=== PATIENT | female | born 1995 | race Caucasian/White ===

== ENCOUNTER → 2020-09-16 | Outpatient (CLI) | payer MEDICAID, OTHER | LOC: LABNPT 11:21 | PROVIDERS: ATTEND Obstetrics & Gynecology | DX: O13.9 Gestational [pregnancy-induced] hypertension without significant proteinuria, unspecified trimester (principal); Z3A.00 Weeks of gestation of pregnancy not specified | CPT/HCPCS: 82570; 84156 ==

== ENCOUNTER 2020-10-23 13:31 | Inpatient (IN) | payer MEDICAID ==
[~2020-10-23] VITALS: Ht 167.7 cm; Wt 111.2 kg
[2020-10-23] VITALS (42 sets, daily range): BP systolic 118–170; BP diastolic 57–98
--- NOTE | 2020-10-23 13:37 | NUR ---
JENNIFER WALDROP presented to unit via wheelchair from ED, accompanied by ED staff, with c/o CONTRACTIONS. JENNIFER WALDROP weighed, gowned, voided, and to bed. EFHM and TOCO applied, VS taken. JENNIFER WALDROP oriented to bed controls, call light, TV, heat, and A/C controls.
[2020-10-23] MEDS ORDERED: PREN-102 PO (14:07)
[2020-10-23] MEDS ORDERED: D5 LR IV SOLUTION 1,000 ML IV SCH (14:15)
[2020-10-23] MEDS ORDERED: MINERAL OIL CONCENTRATE 99.9% 15 ML UDC TOP PRN (14:15)
[2020-10-23 14:35] LABS: BASOPHILS % (AUTO) 0 % (0-10); EOSINOPHILS # (AUTO) 0.1 10^3/uL (0.0-0.3); EOSINOPHILS % (AUTO) 1 % (0-10); HEMATOCRIT 34 % (35-52); HEMOGLOBIN 11.3 g/dL (11.5-16.0); LYMPHOCYTES # (AUTO) 2.5 10^3/uL (1.0-4.0); LYMPHOCYTES % (AUTO) 22 % (12-44); MEAN CORPUSCULAR HEMOGLOBIN 29 pg (25-34); MEAN CORPUSCULAR HGB CONC 34 g/dL (32-36); MEAN CORPUSCULAR VOLUME 86 fL (80-99); MEAN PLATELET VOLUME 11.1 fL (9.0-12.2); MONOCYTES # (AUTO) 0.6 10^3/uL (0.0-1.0); MONOCYTES % (AUTO) 5 % (0-12); NEUTROPHILS % (AUTO) 72 % (42-75); PLATELET COUNT 197 10^3/uL (130-400); WHITE BLOOD COUNT 11.1 10^3/uL (4.3-11.0)
[2020-10-23] MEDS ORDERED: fentaNYL 2 mcg/ml BUPIVA 0.125 100 ML ONE (14:53)
[2020-10-23] MEDS ORDERED: fentaNYL INJECTION 100 MCG/2 ML AMP ONE (15:13)
[2020-10-23] MEDS ORDERED: BUPIVACAINE 0.25% 30 ML (SENSORCAINE) VIAL ONE (15:19)
--- NOTE | 2020-10-23 15:57 | NUR ---
Anesthesia notified of epidural request.
[2020-10-23] MEDS ORDERED: NALOXONE 0.4 MG/ML 1 ML (NARCAN) VIAL IV PRN (16:15)
[2020-10-23] MEDS ORDERED: EPIDURAL (fentaNYL 2 MCG/ML BUPIVA 0.125%)100 ML BAG EPI PRN (16:15)
[2020-10-23] MEDS ORDERED: LACTATED RINGERS 1,000 ML IV ONE ×2 (16:15)
[2020-10-23] MEDS ORDERED: fentaNYL INJECTION 100 MCG/2 ML AMP INJ ONE (16:15)
[2020-10-23] MEDS ORDERED: ONDANSETRON 4 MG/2 ML (SDV) Z0FRAN IV PRN (16:15)
[2020-10-23] MEDS ORDERED: OXYTOCIN PRE-MIX DRIP 500 ML IV ONE ×2 (18:07→20:00)
[2020-10-23] MEDS: OXYTOCIN PRE-MIX DRIP 500 ML IV SCH ×2 (19:39→20:06)
--- NOTE | 2020-10-23 19:55 | History & Physical-OB ---
OB - Chief Complaint & HPI Date/Time Date of Admission: Date of Admission: Oct 23, 2020 at 14:07 Date seen by a Provider: Oct 23, 2020 Time Seen by a Provider: 13:00 Chief Complaint/History OB-Reason for Admission/Chief: Onset of Labor Hx : 2 Hx Para: 1 Expected Date of Delivery: Nov 08, 2020 Gestational Age in Weeks: 37 Gestational Age in Days: 5 Admission Nurse Assessment Rev: Yes History of Labs GBS neg Allergies and Home Medications Allergies Coded Allergies: No Known Drug Allergies (Unverified , 10/23/20) Home Medications Vits #93/Iron Fum/FA 1 Each Tablet, 1 EACH PO DAILY, (Reported) Patient Home Medication List Home Medication List Reviewed: Yes OB - History Hx of Present Care: Yes Ultrasounds: Normal mid trimester US Obstetrical Complications: None Medical Complications: None Patient Past Medical History n/a Immunizations Hepatitis A: Yes Hepatitis B: Yes OB - Admission Exam Physical Exam Vitals: Vital Signs 10/23/20 10/23/20 16:45 17:30 Temp 36.5 Pulse 83 Resp 18 B/P (MAP) 139/80 (99) O2 Delivery Room Air HEENT: NCAT Heart: Rhythm Normal Lungs: Clear Abdomen: Gravid Extremities: Normal Reflexes: Normal Cervical Dilatation: 6cm Effacement: 75% Station: -1 Membranes: Intact Heart Rate: 130's Accelerations: Accelerations Present Decelerations: No Decelerations Short Term Variability: Present Lathe Setup Operator Variability: Average (6-25) Contractions on Admission: 6-10 Minutes Apart Intensity: Mild Labs Laboratory Tests Test 10/23/20 14:25 10/23/20 16:40 Range/Units White Blood Count 11.1 H 4.3-11.0 10^3/uL Red Blood Count 3.91 3.80-5.11 10^6/uL Hemoglobin 11.3 L 11.5-16.0 g/dL Hematocrit 34 L 35-52 % Mean Corpuscular Volume 86 80-99 fL Mean Corpuscular Hemoglobin 29 25-34 pg Mean Corpuscular Hemoglobin Concent 34 32-36 g/dL Red Cell Distribution Width 14.6 H 10.0-14.5 % Platelet Count 197 130-400 10^3/uL Mean Platelet Volume 11.1 9.0-12.2 fL Immature Granulocyte % (Auto) 1 % Neutrophils (%) (Auto) 72 42-75 % Lymphocytes (%) (Auto) 22 12-44 % Monocytes (%) (Auto) 5 0-12 % Eosinophils (%) (Auto) 1 0-10 % Basophils (%) (Auto) 0 0-10 % Neutrophils # (Auto) 8.0 H 1.8-7.8 10^3/uL Lymphocytes # (Auto) 2.5 1.0-4.0 10^3/uL Monocytes # (Auto) 0.6 0.0-1.0 10^3/uL Eosinophils # (Auto) 0.1 0.0-0.3 10^3/uL Basophils # (Auto) 0.0 0.0-0.1 10^3/uL Immature Granulocyte # (Auto) 0.1 0.0-0.1 10^3/uL OB - Assessment/Plan/Diagnosis Assessment Assessment: active labor Admission Dx 25 yo @ 37.5 Active labor GBS neg Admission Status: Inpatient Order (span 2 midnights) Reason for Inpatient Admission: Active labor at term Plan Plan: Expectant Management ERICK JEFFERSON DO Oct 23, 2020 19:55
--- NOTE | 2020-10-23 20:03 | OB Labor & Delivery Record ---
L&D History Date of Service Date of Service: Oct 23, 2020 History Expected Date of Delivery: Nov 08, 2020 Gestational Age in Weeks: 37 Hx : 2 Hx Para: 1 Complications Events: Routine care Operative Indications (Cesarea: N/A-Vaginal Delivery Intrapartal Events: None L&D Stage1 Stage One Onset of Labor - Date: Oct 23, 2020 Monitors and Tracing Monitor Mode: External Heart Rate: 120 Monitor Accelerations: Uniform Station: 0 Care Home Variability: Average (6-10) Short Term Variability: Present Presentation: Vertex Vital Signs VS - Last 72 Hours, by Label 10/23/20 10/23/20 10/23/20 10/23/20 13:55 14:10 14:30 14:45 Temp 37.0 Pulse 100 88 90 86 Resp 18 18 18 18 B/P (MAP) 146/89 (108) 160/95 (116) 164/87 (112) Pulse Ox 98 O2 Delivery Room Air Room Air Room Air Room Air 10/23/20 10/23/20 10/23/20 10/23/20 14:55 15:10 15:30 15:45 Pulse 90 91 85 99 Resp 18 18 18 18 B/P (MAP) 164/96 (118) 154/88 (110) 160/98 (118) 151/72 (98) Pulse Ox 99 O2 Delivery Room Air Room Air Room Air Room Air 10/23/20 10/23/20 10/23/20 10/23/20 15:54 15:56 16:00 16:02 Pulse 86 96 96 87 Resp 18 18 18 18 B/P (MAP) 154/83 (106) 158/68 (98) 154/77 (102) 149/66 (93) Pulse Ox 98 98 98 98 O2 Delivery Room Air Room Air Room Air Room Air 10/23/20 10/23/20 10/23/20 10/23/20 16:05 16:08 16:11 16:14 Pulse 91 91 98 89 Resp 18 18 18 18 B/P (MAP) 140/59 (86) 138/65 (89) 139/67 (91) 153/70 (97) Pulse Ox 98 98 98 98 O2 Delivery Room Air Room Air Room Air Room Air 10/23/20 10/23/20 10/23/20 10/23/20 16:17 16:20 16:25 16:33 Temp 36.6 Pulse 86 88 73 68 Resp 18 18 18 18 B/P (MAP) 152/70 (97) 152/64 (93) 118/57 (77) 137/64 (88) Pulse Ox 97 99 99 98 O2 Delivery Room Air Room Air Room Air Room Air 10/23/20 10/23/20 10/23/20 10/23/20 16:38 16:45 16:48 16:55 Temp 36.5 Pulse 81 83 68 67 Resp 18 18 18 18 B/P (MAP) 132/59 (83) 136/63 (87) 136/75 (95) 132/67 (88) Pulse Ox 98 100 100 100 O2 Delivery Room Air Room Air Room Air Room Air 10/23/20 10/23/20 10/23/20 16:55 17:15 17:30 Pulse 65 88 83 Resp 18 18 18 B/P (MAP) 136/75 (95) 136/77 (96) 139/80 (99) Pulse Ox 100 O2 Delivery Room Air Room Air Room Air Rupture of Membranes Spontaneous Ruture of Membrane: Yes Amniotic Membrane Rupture Time: 1435 Amniotic Membrane Fluid Desc.: Clear Vaginal Bleeding Description: Normal Show Induction/Anesthesia Epidural Cath Placement - Time: 1551 L&D Stage2 Stage Two Stage II Date: Oct 23, 2020 Monitors and Tracing Monitor Mode: External Heart Rate: 120 Monitor Accelerations: Uniform Monitor Decelerations: Variable Care Home Variability: Average (6-10) Short Term Variability: Present Position: Right Occiput Anterior Presentation: Vertex Cord Descript/Complications Cord Vessel Description: 3 Vessels Delivery Type Infant Delivery Method: Spontaneous Vaginal Anterior Shoulder: Right Episiotomy/Perineal Laceration Laceraction(s)/Extensions: No Condition of Infant Delivery 1 minute Comment: 8 5 minute Comment: 9 Notes Live male infant weight pending. Condition of Infant Condition of Infant: Living Exam: No Observed Abnormalities Resuscitation Resuscitation: N/A - Spontaneous Resp L&D Stage3 Stage Three Stage III Date: Oct 23, 2020 Pictocin Pitocin Administration Comment: 30 mu wide open after delivery of placenta Placenta Delivery Placenta Delivery: Spontaneous Delivery Summary Summary Estimated blood loss (mL): 300 Attending at delivery: Erick Jefferson DO Condition of Delivery Examined: Cervix Examined, Uterus Explored Post Hemorrhage: No Condition of Mother stable Condition of Infant (s) stable ERICK JEFFERSON DO Oct 23, 2020 20:03
--- NOTE | 2020-10-23 20:06 | Discharge Inst-Women's Service ---
Discharge Inst-Women's Serv Depart Medication/Instructions New, Converted or Re-Newed RX: RX on Chart Final Diagnosis PPD 2 NVD Problems Reviewed?: Yes Consults/Follow Up Additional Follow Up: Yes Orders/Referrals Dr. Jefferson in 6 weeks Activity Activity: Activity as Tolerated Driving Instructions: No Driving for 1 Week NO SMOKING: NO SMOKING Nothing Inside Vagina: No Douching, No [place], No Tampons Diet Discharge Diet: No Restrictions Symptoms to Report to : Bleeding Excessive, Pain Increased, Fever Over 101 Degrees F, Vaginal Bleeding Increase, Questions/Concerns For Any Problems or Questions: Contact Your Physician ERIKC JEFFERSON DO Oct 23, 2020 20:06
[2020-10-23] MEDS ORDERED: IBUP-844 PO (20:08)
[2020-10-23] MEDS ORDERED: ACHD5005 PO (20:08)
[2020-10-23] MEDS ORDERED: BENZ78AE5 TP (20:08)
[2020-10-23] MEDS ORDERED: DIBU30OI TOP (20:08)
[2020-10-23] MEDS ORDERED: FERR325T18 PO (20:08)
[2020-10-23] MEDS ORDERED: DCS100C PO (20:08)
[2020-10-23] MEDS ORDERED: DIBUCAINE (NUPERCAINAL) 1% OINT 30 GM TOP PRN (20:15)
[2020-10-23] MEDS ORDERED: WITCH HAZEL(TUCKS) 40 EA JAR TOP PRN (20:15)
[2020-10-23] MEDS ORDERED: BENZOCAINE/MENTHOL (DERMOPLAST) 60 ML CAN TP PRN (20:15)
[2020-10-23] MEDS ORDERED: HYDROcodone/APAP 5 MG/325 MG (LORTAB) TAB PO PRN (20:15)
[2020-10-23] MEDS ORDERED: TETANUS,DIPTH,PERTUSS P/F (BOOSTRIX) 0.5 ML VIAL IM ONE (20:15)
[2020-10-23] MEDS ORDERED: MEASLES,MUMPS,RUBELLA 1 EA INJ SQ ONE (20:15)
--- NOTE | 2020-10-23 20:30 | NUR ---
Father voiced need to go out to the car. RN discussed visiting policy with fob. fob states that he has been allowed to come and go from the hospital all day. FOB states his frustrations with RN. measurement supervisor notified
--- NOTE | 2020-10-23 21:45 | NUR ---
Pt able to move legs, pericare completed. pad and panties applied. Pt assisted to w'c and taken to bathroom. Positive void. pericare performed. pt taken by w'c to 311 and orientated to room. call light within reach, info papers discussed. Pt denies any needs, Will continue to monitor.
[2020-10-23] MEDS ORDERED: CATHETER FLUSH 10 ML SYR IV SCH ×2 (22:00)
--- NOTE | 2020-10-23 22:00 | NUR ---
Father is leaving, states he will return when the baby is discharged. Explained to fob is he decides he wants to come back tomorrow he is welcome to return after 7am
[2020-10-23] MEDS: DOCUSATE SODIUM 100 MG (COLACE) CAP PO SCH (22:10)
[2020-10-23] MEDS: IBUPROFEN 600 MG (MOTRIN) TAB PO SCH (22:10)
[2020-10-24] VITALS (7 sets, daily range): BP systolic 136–172; BP diastolic 68–91
[2020-10-24] MEDS: IBUPROFEN 600 MG (MOTRIN) TAB PO SCH ×4 (04:59→23:14)
--- NOTE | 2020-10-24 07:04 | Postpartum Progress Note ---
DESI MCKEE MED STUDENT 10/24/20 0704: Note Note Day # 1 Subjective: Patient is without complaints. Ambulating, voiding. No c/o nausea or vomiting. No vaginal discharge or bleeding. Pain is well controlled with oral pain medications. sleeping soundly at her side. Objective: Physical Exam: General - Alert and oriented, no apparent distress Abdomen - Soft, appropriately tender to palpation, non-distended, fundus firm at umbilicus Extremities - no edema, negative Dannielle's bilaterally Assessment: post- day # 1, status post vaginal delivery. Recovering well, hemodynamically stable Plan: Routine care. Encourage breast feeding. Encourage ambulation. Ferrous sulfate supplementation. Plan for discharge today Per medical student Desi Mckee Vitals - Labs Vital Signs - I&O Vital Signs Date Time Temp Pulse Resp B/P (MAP) Pulse Ox O2 Delivery O2 Flow Rate FiO2 10/24/20 06:48 36.5 86 18 137/68 (91) Room Air 10/24/20 02:41 36.6 72 18 136/76 (96) Room Air 10/23/20 22:00 89 18 142/66 (91) Room Air 10/23/20 21:45 89 18 145/68 (93) Room Air 10/23/20 21:30 89 18 161/71 (101) Room Air 10/23/20 21:15 84 18 167/79 (108) Room Air 10/23/20 21:00 36.6 91 18 153/71 (98) Room Air 10/23/20 20:45 90 18 170/74 (106) Room Air 10/23/20 20:30 101 18 159/73 (101) Room Air 10/23/20 20:15 105 18 161/72 (101) Room Air 10/23/20 20:00 107 18 157/90 (112) Room Air 10/23/20 19:20 95 18 158/75 (102) Room Air 10/23/20 19:05 83 18 147/77 (100) Room Air 10/23/20 18:50 36.5 76 18 135/74 (94) Room Air 10/23/20 18:35 80 18 145/80 (101) Room Air 10/23/20 18:20 85 18 136/81 (99) Room Air 10/23/20 18:05 83 18 134/70 (91) Room Air 10/23/20 17:45 81 18 139/88 (105) Room Air 10/23/20 17:30 83 18 139/80 (99) Room Air 10/23/20 17:15 88 18 136/77 (96) Room Air 10/23/20 16:55 65 18 136/75 (95) 100 Room Air 10/23/20 16:55 67 18 132/67 (88) 100 Room Air 10/23/20 16:48 68 18 136/75 (95) 100 Room Air 10/23/20 16:45 36.5 83 18 136/63 (87) 100 Room Air 10/23/20 16:38 81 18 132/59 (83) 98 Room Air 10/23/20 16:33 68 18 137/64 (88) 98 Room Air 10/23/20 16:25 73 18 118/57 (77) 99 Room Air 10/23/20 16:20 36.6 88 18 152/64 (93) 99 Room Air 10/23/20 16:17 86 18 152/70 (97) 97 Room Air 10/23/20 16:14 89 18 153/70 (97) 98 Room Air 10/23/20 16:11 98 18 139/67 (91) 98 Room Air 10/23/20 16:08 91 18 138/65 (89) 98 Room Air 10/23/20 16:05 91 18 140/59 (86) 98 Room Air 10/23/20 16:02 87 18 149/66 (93) 98 Room Air 10/23/20 16:00 96 18 154/77 (102) 98 Room Air 10/23/20 15:56 96 18 158/68 (98) 98 Room Air 10/23/20 15:54 86 18 154/83 (106) 98 Room Air 10/23/20 15:45 99 18 151/72 (98) 99 Room Air 10/23/20 15:30 85 18 160/98 (118) Room Air 10/23/20 15:10 91 18 154/88 (110) Room Air 10/23/20 14:55 90 18 164/96 (118) Room Air 10/23/20 14:45 86 18 164/87 (112) Room Air 10/23/20 14:30 90 18 160/95 (116) Room Air 10/23/20 14:10 88 18 146/89 (108) Room Air 10/23/20 13:55 37.0 100 18 98 Room Air I & O 10/24/20 07:00 Intake Total 2000 ml Balance 2000 ml Labs Laboratory Tests 10/23/20 14:25: White Blood Count 11.1H, Red Blood Count 3.91, Hemoglobin 11.3L, Hematocrit 34L, Mean Corpuscular Volume 86, Mean Corpuscular Hemoglobin 29, Mean Corpuscular Hemoglobin Concent 34, Red Cell Distribution Width 14.6H, Platelet Count 197, Mean Platelet Volume 11.1, Immature Granulocyte % (Auto) 1, Neutrophils (%) (Auto) 72, Lymphocytes (%) (Auto) 22, Monocytes (%) (Auto) 5, Eosinophils (%) (Auto) 1, Basophils (%) (Auto) 0, Neutrophils # (Auto) 8.0H, Lymphocytes # (Auto) 2.5, Monocytes # (Auto) 0.6, Eosinophils # (Auto) 0.1, Basophils # (Auto) 0.0, Immature Granulocyte # (Auto) 0.1 10/23/20 16:40: JOSE DAVID JEFFERSON DO 10/24/20 0712: Note Note Verification and Attestation of Medical Student E/M Service A medical student performed and documented this service in my presence. I reviewed and verified all information documented by the medical student and made modifications to such information, when appropriate. I personally performed the physical exam and medical decision making. Jose David Jefferson, Oct 24, 2020,07:12 DESI MCKEE MED STUDENT Oct 24, 2020 07:04 JOSE DAVID JEFFERSON DO Oct 24, 2020 07:12
--- NOTE | 2020-10-24 07:30 | NUR ---
Dr. Maloney and med students here to see pt.
[2020-10-24 07:40] LABS: BASOPHILS % (AUTO) 0 % (0-10); EOSINOPHILS # (AUTO) 0.2 10^3/uL (0.0-0.3); EOSINOPHILS % (AUTO) 1 % (0-10); HEMATOCRIT 34 % (35-52); HEMOGLOBIN 11.3 g/dL (11.5-16.0); LYMPHOCYTES # (AUTO) 3.3 10^3/uL (1.0-4.0); LYMPHOCYTES % (AUTO) 22 % (12-44); MEAN CORPUSCULAR HEMOGLOBIN 29 pg (25-34); MEAN CORPUSCULAR HGB CONC 33 g/dL (32-36); MEAN CORPUSCULAR VOLUME 87 fL (80-99); MEAN PLATELET VOLUME 11.3 fL (9.0-12.2); MONOCYTES % (AUTO) 7 % (0-12); NEUTROPHILS # (AUTO) 10.5 10^3/uL (1.8-7.8); NEUTROPHILS % (AUTO) 70 % (42-75); PLATELET COUNT 175 10^3/uL (130-400); WHITE BLOOD COUNT 15.1 10^3/uL (4.3-11.0)
[2020-10-24] MEDS: DOCUSATE SODIUM 100 MG (COLACE) CAP PO SCH ×2 (10:38→20:33)
[2020-10-24] MEDS: PRENATAL VITAMIN 1 EA TAB PO SCH (10:38)
[2020-10-24] MEDS: FERROUS SULF 325 MG (IRON) TAB PO SCH (10:38)
--- NOTE | 2020-10-24 12:25 | NUR ---
CM/SS: Visited with pt as per Social Service Consult. Plan: Baby will go home with mom and significant other at time of discharge. Summary: Baby is in the crib sleeping. Pt is at crib side. Significant other has gone home to gather car seat and items for baby. Pt reports she currently lives in [place] and is in the process of setting up services for baby. Baby does not have a doctor yet. Pt is given information and the phone number to [facility] to establish a physician for baby. Pt also reports needing to get WIC set up and is also given the phone number for the [facility]. Pt is also educated on post depression, and denies any mental health or depression. Pt reports having lived in [place] and moved to [place] in June 2020 - as she is from this area. She does have a 8year old at home and significant other has a child as well in the home. She has not lost any children to the state per her report. Pt is given written information on Healthy Families and resources in the area. Pt is appreciative of the information. Pt reports support in [place] of brothers and a grandma. She thanks this worker for the information. Pt is wished well.
--- NOTE | 2020-10-24 14:10 | Anesthesia-Regional Post-Op ---
Regional Patient Condition Mental Status: Alert, Oriented x3 Circulation: Same as Pre-Op Headache: Absent Sensation: Full Recovery Motor Block: Absent Post Op Complications Complications None Follow Up Care/Instructions Patient Instructions None needed. Anesthesia/Patient Condition Patient is doing well, no complaints, stable vital signs, no apparent adverse anesthesia problems. No complications reported per nursing. D/C home per [facility] Criteria: Yes TORY JIANG CRNA Oct 24, 2020 14:10
--- NOTE | 2020-10-24 15:02 | NUR ---
Dr. Maloney called and notified of last two BP's. Orders for UDS and 5mg Norvasc rec'd.
[2020-10-24] MEDS ORDERED: amLODIPine 5 MG (NORVASC) TAB PO ONE ×2 (15:15→18:00)
[2020-10-24 15:45] LABS: AMPHETAMINE SCREEN, URINE NEGATIVE (NEGATIVE); BARBITURATE SCREEN URINE NEGATIVE (NEGATIVE); BENZODIAZEPINES SCREEN URINE NEGATIVE (NEGATIVE); CANNABINOID SCREEN, URINE NEGATIVE (NEGATIVE); COCAINE SCREEN URINE NEGATIVE (NEGATIVE); METHADONE STAT NEGATIVE (NEGATIVE); METHAMPHETAMINE SCREEN URINE S NEGATIVE (NEGATIVE); OPIATE SCREEN URINE NEGATIVE (NEGATIVE); OXYCODONE STAT NEGATIVE (NEGATIVE); PROPOXYPHENE STAT NEGATIVE (NEGATIVE); TRICYCLIC ANTIDEPRESSANTS SCRE NEGATIVE (NEGATIVE)
--- NOTE | 2020-10-24 15:56 | NUR ---
UDS REPORTED TO DR JEFFERSON
--- NOTE | 2020-10-24 17:30 | NUR ---
NOTIFIED OF LATEST BP OF 170/91. ORDERS FOR ANOTHER 5MG NORVASC AND 10MG LASIX NOW, WITH ANOTHER 10MG ORDERED DAILY STARTING TOMORROW AM. Addendum: 10/24/20 at 1953 by PAULA LINN RN NOTE SHOULD READ "WITH ANOTHER 10MG NORVASC ORDERED DAILY"
[2020-10-24] MEDS ORDERED: amLODIPine 5 MG (NORVASC) TAB ONE (18:03)
[2020-10-24] MEDS ORDERED: FUROSEMIDE 20 MG (LASIX) TAB ONE (18:03)
[2020-10-24] MEDS ORDERED: FUROSEMIDE 20 MG (LASIX) TAB PO SCH (18:15)
--- NOTE | 2020-10-24 20:35 | NUR ---
PM assessment completed, see interventions. Wilmore tray provided. No other questions or concerns voiced at this time.
--- NOTE | 2020-10-24 21:55 | NUR ---
Dr. Maloney called unit to check on patient status. This RN updated Dr. Maloney. No new orders received at this time.
[2020-10-25] MEDS: IBUPROFEN 600 MG (MOTRIN) TAB PO SCH (05:19)
[2020-10-25 05:20] VITALS: BP 127/67
[2020-10-25] MEDS ORDERED: AMLO-251 PO (07:48)
--- NOTE | 2020-10-25 07:54 | Postpartum Progress Note ---
Note Note Day # 2 Subjective: Patient is without complaints. Ambulating, voiding. Tolerating a regular diet without nausea or vomiting. Normal lochia. Pain is well controlled with oral pain medications. Objective: Physical Exam: General - Alert and oriented, no apparent distress Abdomen - Soft, appropriately tender to palpation, non-distended, fundus firm at umbilicus Extremities - no edema, negative Dannielle's bilaterally Assessment: PPD 2 NVD Transient labile BP- better controlled today. Plan: Routine care. Encourage breast feeding. Encourage ambulation. Ferrous sulfate supplementation. Plan for discharge today Vitals - Labs Vital Signs - I&O Vital Signs Date Time Temp Pulse Resp B/P (MAP) Pulse Ox O2 Delivery O2 Flow Rate FiO2 10/25/20 05:20 36.4 82 16 127/67 (87) 98 Room Air 10/24/20 23:15 36.5 63 18 141/80 (100) 98 Room Air 10/24/20 20:35 36.1 75 18 146/76 (99) 98 Room Air 10/24/20 17:23 36.5 76 18 170/91 (117) Room Air 10/24/20 14:45 36.6 84 18 172/84 (113) Room Air 10/24/20 10:33 36.5 74 18 159/77 (104) 98 Room Air Labs Laboratory Tests 10/24/20 15:25: Urine Opiates Screen NEGATIVE, Urine Oxycodone Screen NEGATIVE, Urine Methadone Screen NEGATIVE, Urine Propoxyphene Screen NEGATIVE, Urine Barbiturates Screen NEGATIVE, Ur Tricyclic Antidepressants Screen NEGATIVE, Urine Phencyclidine Screen NEGATIVE, Urine Amphetamines Screen NEGATIVE, Urine Methamphetamines Screen NEGATIVE, Urine Benzodiazepines Screen NEGATIVE, Urine Cocaine Screen NEGATIVE, Urine Cannabinoids Screen NEGATIVE ERICK JEFFERSON DO Oct 25, 2020 07:54
[2020-10-25] MEDS: FERROUS SULF 325 MG (IRON) TAB PO SCH (08:33)
[2020-10-25] MEDS: PRENATAL VITAMIN 1 EA TAB PO SCH (08:33)
[2020-10-25] MEDS: DOCUSATE SODIUM 100 MG (COLACE) CAP PO SCH (08:33)
[2020-10-25 08:35] VITALS: BP 160/103
[2020-10-25] MEDS ORDERED: amLODIPine 10 MG (NORVASC) TAB PO SCH (09:00)
[2020-10-25 10:20] VITALS: BP 120/66
== END 2020-10-25 17:08 | disposition home or self-care (01) | DRG 807 ==
LOC: LDRP 13:31 → WSo 13:31 → LDRP 14:07
PROVIDERS: ADMIT Obstetrics & Gynecology; ATTEND Obstetrics & Gynecology
PROC: 10E0XZZ Delivery of Products of Conception, External Approach (ICD-10-PCS; principal; 2020-10-23)
DX: O90.89 Other complications of the puerperium, not elsewhere classified (principal); R09.89 Other specified symptoms and signs involving the circulatory and respiratory systems; Z37.0 Single live birth; Z3A.37 37 weeks gestation of pregnancy; Z20.822 Contact with and (suspected) exposure to COVID-19
CPT/HCPCS: 36415; 80306; 83033; 85025; 86850; 86900; 86901; 87635